=== PATIENT | female | born 1950 | race Caucasian/White ===

== ENCOUNTER 2018-05-22 08:30 | Day surgery (SDC) | payer MEDICARE, OTHER ==
[~2018-05-22] VITALS: Ht 160 cm; Wt 139.1 kg
[2018-05-22 08:42] VITALS: BP 163/82
[2018-05-22] MEDS ORDERED: POTA10TA36 PO (08:50)
[2018-05-22] MEDS ORDERED: LOSA100T15 PO (08:51)
[2018-05-22] MEDS ORDERED: METO-384 PO (08:52)
[2018-05-22] MEDS ORDERED: PRAV20TA PO (08:52)
[2018-05-22] MEDS ORDERED: AMLO5TAB PO (08:54)
[2018-05-22] MEDS ORDERED: FURO-149 PO (08:55)
[2018-05-22] MEDS ORDERED: PANT-47 PO (08:55)
[2018-05-22] MEDS ORDERED: FERR325T32 PO (08:56)
[2018-05-22] MEDS ORDERED: LEVO5TAB13 PO (08:56)
[2018-05-22] MEDS ORDERED: ESZO3TAB40 PO (08:57)
[2018-05-22] MEDS ORDERED: MONT10TA21 PO (08:57)
[2018-05-22] MEDS ORDERED: ALBU18HF2 INH (09:00)
[2018-05-22] MEDS ORDERED: TIOT18CA3 (09:00)
[2018-05-22] MEDS ORDERED: LIDOcaine Viscous 15ml cup ONE (09:24)
[2018-05-22] MEDS ORDERED: fentaNYL/PF 50MCG/1 ML 2ML syringe ONE (09:24)
[2018-05-22] MEDS ORDERED: MIDAZolam 5mg/5ml vial ONE (09:24)
[2018-05-22 09:52] VITALS: BP 163/82
[2018-05-22 10:02] VITALS: BP 124/80
[2018-05-22 10:12] VITALS: BP 173/60
[2018-05-22 10:22] VITALS: BP 168/70
== END 2018-05-22 10:30 | disposition home or self-care (01) ==
LOC: GI LAB 08:30
PROVIDERS: ATTEND Internal Medicine Gastroenterology
DX: K44.9 Diaphragmatic hernia without obstruction or gangrene (principal); K29.70 Gastritis, unspecified, without bleeding; K31.89 Other diseases of stomach and duodenum
CPT/HCPCS: 43239; G0500; J2250; J3010; J7030; 99152; A4620